=== PATIENT | male | born 1985 | race Two or more races ===

== ENCOUNTER 2017-08-16 06:53 | Emergency (ER) | payer MEDICAID ==
[~2017-08-16] VITALS: Ht 165.1 cm; Wt 72.6 kg
[2017-08-16 07:06] VITALS: BP 124/73
[2017-08-16] MEDS ORDERED: DiphenhydrAMINE 50mg/ml Inj IVP ONE (07:15)
[2017-08-16] MEDS ORDERED: Metoclopramide 10mg/2ml Inj IVP ONE (07:15)
[2017-08-16] MEDS ORDERED: Morphine Sulfate 4mg/ml Inj IVP ONE (07:15)
--- NOTE | 2017-08-16 07:32 | Emergency Room Report ---
History of Present Illness General Chief Complaint: Headache Source: Patient Present Illness HPI 32-year-old male presents ED complaining of headache. States the headache started yesterday. Noted to the back of his head, throbbing, 4 out of 10, nonradiating. Denies nuchal rigidity. Denies fevers chills. Denies nausea or vomiting. Patient states he's been having blurry vision for the last month also having weakness and dizziness. Patient's been seen by PMD. Currently waiting referral to neurology. Denies bowel or bladder incontinence. No other aggravating relieving factors. Denies any other associated symptoms Allergies: Coded Allergies: No Known Allergies (Unverified , 08/16/17) Patient History Past Medical History: none Past Surgical History: none Pertinent Family History: none Social History: Denies: smoking, alcohol use, drug use Immunizations: UTD Reviewed Nursing Documentation: PMH: Agreed; PSxH: Agreed Nursing Documentation-PMH Past Medical History: No History, Except For Hx Gastrointestinal Problems: Yes - gastritis Review of Systems All Other Systems: negative except mentioned in HPI Physical Exam Vital Signs Date Time Temp Pulse Resp B/P (MAP) Pulse Ox O2 Delivery O2 Flow Rate FiO2 08/16/17 06:54 97.8 66 18 124/73 99 Room Air 97.9 Sp02 EP Interpretation: reviewed, normal General Appearance: no apparent distress, alert, GCS 15, non-toxic Head: normocephalic, atraumatic Eyes: bilateral eye normal inspection, bilateral eye PERRL ENT: hearing grossly normal, normal pharynx, no angioedema, normal voice Neck: full range of motion, no meningismus, supple/symm/no masses Respiratory: chest non-tender, lungs clear, normal breath sounds, speaking full sentences Cardiovascular #1: regular rate, rhythm, no edema Cardiovascular #2: 2+ carotid (R), 2+ carotid (L), 2+ radial (R), 2+ radial (L) , 2+ dorsalis pedis (R), 2+ dorsalis pedis (L) Gastrointestinal: normal bowel sounds, non tender, soft, non-distended, no guarding, no rebound Rectal: deferred Genitourinary: normal inspection, no CVA tenderness Musculoskeletal: back normal, gait/station normal, normal range of motion, non- tender Neurologic: alert, oriented x3, responsive, motor strength/tone normal, sensory intact, speech normal Psychiatric: judgement/insight normal, memory normal, mood/affect normal, no suicidal/homicidal ideation Reflexes: 3+ bicep (R), 3+ bicep (L), 3+ tricep (R), 3+ tricep (L), 3+ knee (R) , 3+ knee (L) Skin: normal color, no rash, warm/dry, well hydrated Lymphatic: no adenopathy Medical Decision Making Diagnostic Impression: Primary Impression: Headache Qualified Codes: R51 - Headache ER Course Hospital Course 32 yo M presents to ED c/o occipital headache, dizziness, blurry vision x 1 month Differential diagnoses include: tension headache, migraine, dehydration, intracranial bleed Clinical course Patient placed on stretcher. After initial history and physical I ordered labs , IV fluids, Reglan, morphine and Benadryl. Labs reviewed- electrolytes okay, no leukocytosis, hemoglobin/hematocrit stable Given presentation I decided to order MRI. MRI was read as unremarkable however official report not available at time of this charting as MRI unable to transmit to PACS) I discussed findings with patient. Recommend close follow-up with PMD. Recommend neurology as outpatient i. I feel this is a highly complex case requiring extensive working including EKG/Rhythm strip, Xray/CT/US, Blood/urine lab work, repeat exams while in ED, and administration of strong opiates/narcotics for pain control, admission to hospital or close patient follow up. Diagnosis - headache stable and discharged to home with Rx Motrin. f/up with PMD/neurology. return to ED if symptoms recur/worsen. Labs Test 08/16/17 07:17 White Blood Count 4.5 K/UL (4.8-10.8) Red Blood Count 5.28 M/UL (4.70-6.10) Hemoglobin 14.4 G/DL (14.2-18.0) Hematocrit 43.5 % (42.0-52.0) Mean Corpuscular Volume 82 FL (80-99) Mean Corpuscular Hemoglobin 27.3 PG (27.0-31.0) Mean Corpuscular Hemoglobin Concent 33.2 G/DL (32.0-36.0) Red Cell Distribution Width 12.1 % (11.6-14.8) Platelet Count 213 K/UL (150-450) Mean Platelet Volume 7.7 FL (6.5-10.1) Neutrophils (%) (Auto) 50.7 % (45.0-75.0) Lymphocytes (%) (Auto) 38.8 % (20.0-45.0) Monocytes (%) (Auto) 5.2 % (1.0-10.0) Eosinophils (%) (Auto) 4.0 % (0.0-3.0) Basophils (%) (Auto) 1.4 % (0.0-2.0) Sodium Level 139 MMOL/L (136-145) Potassium Level 4.1 MMOL/L (3.5-5.1) Chloride Level 105 MMOL/L (98-107) Carbon Dioxide Level 28 MMOL/L (21-32) Anion Gap 7 mmol/L (5-15) Blood Urea Nitrogen 18 mg/dL (7-18) Creatinine 0.9 MG/DL (0.55-1.30) Estimat Glomerular Filtration Rate > 60 mL/min (>60) Glucose Level 109 MG/DL (74-106) Calcium Level 9.0 MG/DL (8.5-10.1) Total Bilirubin 1.0 MG/DL (0.2-1.0) Aspartate Amino Transf (AST/SGOT) 22 U/L (15-37) Alanine Aminotransferase (ALT/SGPT) 35 U/L (12-78) Alkaline Phosphatase 89 U/L (46-116) Total Protein 8.1 G/DL (6.4-8.2) Albumin 4.2 G/DL (3.4-5.0) Globulin 3.9 g/dL Albumin/Globulin Ratio 1.1 (1.0-2.7) CT/MRI/US Diagnostic Results CT/MRI/US Diagnostic Results : Imaging Test Ordered: MRI Brain Impression no acute process (spoke to Dr Ruiz; currently unable to transmit to PACs) Last Vital Signs Date Time Temp Pulse Resp B/P (MAP) Pulse Ox O2 Delivery O2 Flow Rate FiO2 08/16/17 07:23 97.9 08/16/17 07:06 78 18 124/73 99 Room Air Status: improved Disposition: HOME, SELF-CARE Condition: Stable Scripts Ibuprofen* (MOTRIN*) 600 Mg Tablet 600 MG ORAL Q8H PRN for For Pain, #30 TAB 0 Refills Prov: Kaiden Mao MD 08/16/17 Referrals: NOT CHOSEN IPA/,REFERRING (PCP) Kaiden Mao MD August 16, 2017 07:32
[2017-08-16 07:37] LABS: BASOPHILS % (AUTO) 1.4 % (0.0-2.0); HEMATOCRIT 43.5 % (42.0-52.0); HEMOGLOBIN 14.4 G/DL (14.2-18.0); LYMPHOCYTES % (AUTO) 38.8 % (20.0-45.0); MEAN CORPUSCULAR VOLUME 82 FL (80-99); MONOCYTES % (AUTO) 5.2 % (1.0-10.0); NEUTROPHILS % (AUTO) 50.7 % (45.0-75.0); PLATELET COUNT 213 K/UL (150-450); RED BLOOD COUNT 5.28 M/UL (4.70-6.10); RED CELL DISTRIBUTION WIDTH 12.1 % (11.6-14.8); WHITE BLOOD COUNT 4.5 K/UL (4.8-10.8)
[2017-08-16 07:54] LABS: ANION GAP 7 mmol/L (5-15); BLOOD UREA NITROGEN 18 mg/dL (7-18); CARBON DIOXIDE 28 MMOL/L (21-32); CHLORIDE 105 MMOL/L (98-107); CREATININE 0.9 MG/DL (0.55-1.30); POTASSIUM 4.1 MMOL/L (3.5-5.1); SODIUM 139 MMOL/L (136-145)
[2017-08-16 07:59] LABS: ALANINE AMINOTRANSFERASE 35 U/L (12-78); ALBUMIN 4.2 G/DL (3.4-5.0); ALBUMIN/GLOBULIN RATIO 1.1 (1.0-2.7); ALKALINE PHOSPHATASE 89 U/L (46-116); ASPARTATE AMINO TRANSFERASE 22 U/L (15-37)
[2017-08-16] MEDS ORDERED: IBUPROFEN600 MG ORAL (09:31)
[2017-08-16 09:39] VITALS: BP 124/73
--- NOTE | 2017-08-17 10:31 | Diagnostic Imaging Report ---
Indication: 32-year-old male with dizziness, weakness blurry vision headache Technique: The head was imaged in a 1.5 Alana magnet. Sequences obtained include sagittal and axial T1 FLAIR, axial T2 fast spin echo with fat saturation, axial T2 FLAIR, diffusion and ADC map. Comparison: None Findings: There is mild tonsillar herniation below the foramen magnum consistent with a Chiari I malformation. The size, contour, and configuration of the sulci, ventricles, and basal cisterns appear normal. Yuan-white differentiation is normal. There is no restricted diffusion. There is no mass effect, midline shift, edema, or hemorrhage. There are no abnormal extra-axial or intra-axial fluid collections. The corpus callosum is unremarkable. The brainstem and cerebellum are unremarkable. The sella is unremarkable. Bone marrow signal within the visualized osseous structures appears age appropriate and unremarkable otherwise. Impression: Chiari I malformation. Normal MRI of the brain otherwise.
== END 2017-08-16 09:40 | disposition home or self-care (01) ==
LOC: EMR 07:15
DX: R51 Headache (principal); G93.5 Compression of brain
CPT/HCPCS: 36415; 70551; 80053; 85025; 96374; 96375; 99284; J1200; J2270; J2765

== ENCOUNTER 2017-11-07 13:00 | Emergency (ER) | payer MEDICAID ==
[~2017-11-07] VITALS: Ht 160 cm; Wt 72.6 kg
[~2017-11-07 13:00] MED LIST: IBUPROFEN600 MG ORAL
[2017-11-07 13:14] VITALS: BP 121/79
[2017-11-07] MEDS ORDERED: Ketorolac 60mg Inj IM ONE (13:30)
[2017-11-07] MEDS ORDERED: Meclizine 25mg tab ORAL ONE (13:30)
[2017-11-07] MEDS ORDERED: Metoclopramide 10mg/2ml Inj IM ONE (13:30)
--- NOTE | 2017-11-07 13:34 | Emergency Room Report ---
History of Present Illness General Chief Complaint: Abdominal Pain Source: Patient, Medical Record Present Illness HPI 32-year-old male presents to the emergency department complaining of 10 out of 10 in severity headache with associated nausea and vomiting. Patient reports that had malformation surgery performed 2 months ago and his head. He denies photophobia or hyperacusis. Patient does report some dizziness as well states primarily when he stands up, describes the room spinning. Patient recalls that the vomiting occurred prior to his headache. He denies fevers or chills, Denies neck pain/stiffness. Reports that headache had progressive onset denies constipation or diarrhea denies black tarry stools or blood in the stools. He also denies blood in the vomit. Denies recent head trauma or fall. reports he is currently Rx'd hydrocodone and Robaxin. Allergies: Coded Allergies: No Known Allergies (Unverified , 08/16/17) Patient History Past Medical History: see triage record, other - AV Malformation Past Surgical History: other - AV Malformation surgery Pertinent Family History: none Reviewed Nursing Documentation: PMH: Agreed; PSxH: Agreed Nursing Documentation-PMH Past Medical History: No History, Except For Hx Gastrointestinal Problems: Yes - gastritis Review of Systems All Other Systems: negative except mentioned in HPI Physical Exam Vital Signs Date Time Temp Pulse Resp B/P (MAP) Pulse Ox O2 Delivery O2 Flow Rate FiO2 11/07/17 13:04 98.2 90 18 121/79 95 Room Air 98.2 Sp02 EP Interpretation: reviewed, normal General Appearance: no apparent distress, alert, GCS 15, non-toxic Head: normocephalic, atraumatic Eyes: bilateral eye normal inspection, bilateral eye PERRL ENT: hearing grossly normal, normal voice Neck: full range of motion, no meningismus, no bony tend, other - sugical scar noted no evidence of infection. Respiratory: lungs clear, normal breath sounds, speaking full sentences Cardiovascular #1: regular rate, rhythm Gastrointestinal: normal bowel sounds, non tender, soft Rectal: deferred Genitourinary: normal inspection Musculoskeletal: back normal, gait/station normal, normal range of motion, non- tender Neurologic: alert, oriented x3, responsive, motor strength/tone normal, sensory intact, cerebellar normal, normal gait, speech normal, no pronator, other - no nystagmus, grossly normal Psychiatric: judgement/insight normal Skin: normal color, no rash, warm/dry, well hydrated Medical Decision Making PA Attestation Dr. Gurrola is my supervising Physician whom patient management has been discussed with. Diagnostic Impression: Primary Impression: Dehydration, mild Additional Impressions: Head ache Qualified Codes: R51 - Headache Nausea & vomiting Qualified Codes: R11.2 - Nausea with vomiting, unspecified ER Course 32-year-old male presents to the emergency department complaining of 10 out of 10 in severity headache with associated nausea and vomiting. Patient reports that had malformation surgery performed 2 months ago and his head. He denies photophobia or hyperacusis. Patient does report some dizziness as well states primarily when he stands up, describes the room spinning. Patient recalls that the vomiting occurred prior to his headache. He denies fevers or chills, Denies neck pain/stiffness. Reports that headache had progressive onset denies constipation or diarrhea denies black tarry stools or blood in the stools. He also denies blood in the vomit. Denies recent head trauma or fall. reports he is currently Rx'd hydrocodone and Robaxin. Ddx considered but are not limited to migraine, SAH, Pseudomotor Cerebri, Mass lesion, Cluster MELISSA, Tension MELISSA, Gastritis, Dehydration-mild/ hypovolemia/ orthostatic hypo. Vital signs: are WNL, pt. is afebrile H&PE are most consistent with MELISSA with dizziness component, and hx of AV malformation this pt. ORDERS: - CT Head No Contrast: Unremarkable the known Chiari malformation identified no the comparison MRI is not as well seen. 1.4. cm mucous retention cyst in the left maxillary sinus. no ICH, mass effect or acute intracranial findings. ED INTERVENTIONS: -10mg Reglan IM -IM Toradol -1 Liter NS Bolus -Meclizine 25mg PO Pt reports Dizziness has resolved after ED interventions. DISCHARGE: At this time pt. is stable for d/c to home. Will provide printed patient care instructions, and any necessary prescriptions. Care plan and follow up instructions have been discussed with the patient prior to discharge. CT/MRI/US Diagnostic Results CT/MRI/US Diagnostic Results : Imaging Test Ordered: CT Head No Contrast Impression Unremarkable the known Chiari malformation identified no the comparison MRI is not as well seen. 1.4. cm mucous retention cyst in the left maxillary sinus. no ICH, mass effect or acute intracranial findings. - Per official radiology report- Please see report for specific details. Last Vital Signs Date Time Temp Pulse Resp B/P (MAP) Pulse Ox O2 Delivery O2 Flow Rate FiO2 11/07/17 13:14 98.2 18 121/79 95 Room Air 98.2 11/07/17 13:04 90 Status: improved Disposition: HOME, SELF-CARE Condition: Serious Scripts Ondansetron Odt* (ZOFRAN ODT*) 4 Mg Tab.rapdis 4 MG BC EVERY 8 HOURS, #10 TAB 0 Refills Prov: Lisseth Elaine 11/07/17 Patient Instructions: Dehydration, Adult, [id number], Nausea and Vomiting, Adult, [id number] Additional Instructions: Take medications as directed. Follow up with a Primary Care Provider and Neurologist in 3-5 days, even if your symptoms have resolved. --Please review list of primary care clinics, if you do not already have a primary care provider Return sooner to ED if new symptoms occur, or current symptoms become worse. - Please note that this Emergency Department Report was dictated using [employer] broker technology software, occasionally this can lead to erroneous entry secondary to interpretation by the dictation equipment. Lisseth Elaine Nov 07, 2017 13:34
[2017-11-07] MEDS ORDERED: Metoclopramide 10mg/2ml Inj IVP ONE (13:45)
[2017-11-07] MEDS ORDERED: Ketorolac 30mg Inj IV ONE (13:45)
[2017-11-07] MEDS ORDERED: ONDANSETRON ODT4 MG BC (15:08)
[2017-11-07 15:20] VITALS: BP 118/75
--- NOTE | 2017-11-08 08:42 | Diagnostic Imaging Report ---
Indications: Head pain Technique: Spiral acquisitions obtained through the brain. Angled axial and coronal 5 x 5 mm slices were reconstructed. Total dose length product 1410.35 mGycm. CTDI vol(s) 70.38 mGy. Dose reduction achieved using automated exposure control Comparison: Brain MRI dated 08/08/2017 Findings: No acute intracranial hemorrhage or edema, mass effect, nor midline shift. Normal size ventricles and extra-axial CSF spaces. Normal ward-white differentiation. Intact calvarium. There is a mucous retention cyst in the left maxillary sinus. Previously reported Chiari I malformation is less evident on CT Impression: Negative for acute intracranial bleed or mass effect Incidental findings as noted This agrees with the preliminary interpretation provided overnight by [facility] teleradiology service. The CT scanner at [facility] is accredited by the [employer] and the scans are performed using protocols designed to limit radiation exposure to as low as reasonably achievable to attain images of sufficient resolution adequate for diagnostic evaluation.
== END 2017-11-07 15:45 | disposition home or self-care (01) ==
LOC: EMR 13:33
DX: R51 Headache (principal); E86.0 Dehydration; K29.70 Gastritis, unspecified, without bleeding; R42 Dizziness and giddiness; Z98.890 Other specified postprocedural states
CPT/HCPCS: 70450; 96361; 96372; 96374; 96375; 99285; J2765; 99284

== ENCOUNTER 2017-12-27 15:03 | Emergency (ER) | payer MEDICAID ==
[~2017-12-27] VITALS: Ht 162.6 cm; Wt 63.5 kg
[~2017-12-27 15:03] MED LIST changes: +ONDANSETRON ODT4 MG BC
--- NOTE | 2017-12-27 15:44 | Emergency Room Report ---
History of Present Illness General Chief Complaint: General Complaint Source: Patient, Medical Record Present Illness HPI Yossi is a very pleasant 32-year-old male who underwent surgery due to chiari malformation. The surgery occurred 4 minutes ago at [facility]. Prior to the surgery he had headache blurry vision and left arm weakness. After the surgery he has had intermittent blurry vision. He has had swelling near the incision site just to the left. His primary care physician was concerned that the swelling was caused by another process. Neurosurgeon gave the patient reassurance and recommended anti-inflammatories. Patient will begin physical therapy which should help the swelling. The swelling is intermittent. It lasts several days and then resolves spontaneously. Allergies: Coded Allergies: No Known Allergies (Unverified , 08/16/17) Patient History Past Medical History: see triage record Past Surgical History: other - per HPI Social History: Denies: smoking Reviewed Nursing Documentation: PMH: Agreed; PSxH: Agreed Nursing Documentation-PM Past Medical History: No History, Except For Hx Gastrointestinal Problems: Yes - gastritis Review of Systems Constitutional: Denies: sweats, fever Cardiovascular: Denies: chest pain All Other Systems: negative except mentioned in HPI Physical Exam Vital Signs Date Time Temp Pulse Resp B/P (MAP) Pulse Ox O2 Delivery O2 Flow Rate FiO2 12/27/17 15:10 98.3 77 18 119/72 97 Room Air 98.2 Sp02 EP Interpretation: reviewed, normal General Appearance: no apparent distress, alert, GCS 15, non-toxic Head: normocephalic, atraumatic Eyes: bilateral eye normal inspection ENT: hearing grossly normal, normal pharynx, no angioedema, normal voice Neck: full range of motion, supple, no meningismus, no bony tend, supple/symm/ no masses, other - midline well healed surgical scar without infection, FROM, no swelling no tenderness no redness Respiratory: chest non-tender, lungs clear, normal breath sounds, speaking full sentences Cardiovascular #1: regular rate, rhythm, no edema, no gallop, no JVD, no murmur , no rub Gastrointestinal: normal bowel sounds, non tender, soft, non-distended, no guarding, no rebound Genitourinary: normal inspection Musculoskeletal: back normal, gait/station normal, normal range of motion, non- tender Neurologic: alert, oriented x3, responsive, motor strength/tone normal, sensory intact, speech normal Psychiatric: judgement/insight normal, memory normal, mood/affect normal, no suicidal/homicidal ideation Skin: normal color, no rash, warm/dry, well hydrated Medical Decision Making Diagnostic Impression: Primary Impression: History of recent neurosurgical procedure Additional Impressions: Chiari malformation Seroma after procedure ER Course Yossi has hx of intermittent swelling near surgical site for past 4 months. Has been closely followed by neurosurgeon and PCP. No indication of meningitis. Patient has seroma as a result of procedure according to CT head and CT spine. REcommended continued use of NSAIDS dc'd to follow up with his personal neurologist or neurosurgeon. Patient given verbal and written dc'd instructions. He was given copies of CT reports. Last Vital Signs Date Time Temp Pulse Resp B/P (MAP) Pulse Ox O2 Delivery O2 Flow Rate FiO2 12/27/17 15:10 98.3 77 18 119/72 97 Room Air 98.2 Disposition: HOME, SELF-CARE Condition: Stable Alexandra Leyva MD Dec 27, 2017 15:44
--- NOTE | 2017-12-27 16:22 | Diagnostic Imaging Report ---
Indication: Headache Technique: Contiguous 5 mm thick transaxial imaging of the head obtained in a Siemens Sensation [address] scanner. Soft tissue and bone windows generated. Automatic Exposure Control was utilized. Total Dose length Product (DLP): 1856.[address] Dose Index Volume (CTDIvol): 70.38,16.24 mGy Comparison: none Findings: The size and configuration of the cortical sulci, basal cisterns, and ventricles are within normal limits for age. There is no mass effect, midline shift, or edema identified. There is no evidence of acute hemorrhage or abnormal intra-axial or extra-axial fluid collections. The bones and soft tissues are unremarkable. Impression: No mass effect, edema or acute bleed. The CT scanner at [facility] is accredited by the [employer] and the scans are performed using dose optimization techniques as appropriate to a performed exam including Automatic Exposure control.
--- NOTE | 2017-12-27 16:33 | Diagnostic Imaging Report ---
Indication: Neck pain. Headache. Status post surgery for a Chiari malformation Technique: Continuous helical imaging of the cervical spine was obtained transaxially from the skull base to the upper thoracic spine. 2-D coronal and sagittal reformatted images were obtained. Automatic Exposure Control was utilized. Total Dose length Product (DLP): 1856.[address] Dose Index Volume (CTDIvol): 70.38,16.24 mGy Comparison: MRI brain 08/16/2017 Findings: The patient has had recent widening of the foramen magnum, resection of part of the lamina and spinous process of C1. There is approximately 2.7 x 3.6 x 3.3 cm fluid collection (AP, craniocaudal, transverse dimensions respectively) within the surgical bed, posterior C1 level, posterior to the thecal sac and spinal canal. This is consistent with a postoperative fluid collection and may be a seroma or pseudomeningocele (CSF collection). There is no mass effect or compression of the spinal canal. The remainder of the exam is normal. Osseous structures demonstrate normal alignment. There is distortion of the posterior paraspinous musculature such as the nuchal ligament and the subcutaneous fat due to the surgery. IMPRESSION: Postoperative fluid collection measuring 2.7 x 3.6 x 2.3 cm at the C1 laminectomy site likely seroma or pseudomeningocele. No evidence of any associated compression of the thecal sac or cord. Partial suboccipital craniectomy also noted. The CT scanner at [facility] is accredited by the [employer] and the scans are performed using dose optimization techniques as appropriate to a performed exam including Automatic Exposure control.
[2017-12-27 16:46] VITALS: BP 119/72
[2017-12-27 18:10] VITALS: BP 123/75
== END 2017-12-27 18:15 | disposition home or self-care (01) ==
LOC: EMR 16:09
DX: L76.34 Postprocedural seroma of skin and subcutaneous tissue following other procedure (principal); Y83.8 Other surgical procedures as the cause of abnormal reaction of the patient, or of later complication, without mention of misadventure at the time of the procedure; Y92.9 Unspecified place or not applicable; Z86.69 Personal history of other diseases of the nervous system and sense organs
CPT/HCPCS: 70450; 72125; 99284

== ENCOUNTER 2018-01-20 18:35 | Emergency (ER) | payer MEDICAID ==
[~2018-01-20] VITALS: Ht 167.6 cm; Wt 78.0 kg
[2018-01-20 18:45] VITALS: BP 132/85
[2018-01-20] MEDS ORDERED: MAGNESIUM OXID400 M1 ORAL (18:54)
[2018-01-20] MEDS ORDERED: TOPIRAMATE100 MG ORAL (18:54)
--- NOTE | 2018-01-20 19:20 | Emergency Room Report ---
History of Present Illness General Chief Complaint: Headache Source: Patient Present Illness HPI 32-year-old male patient presents ER complaining of headache and blurred vision for the past 2 days. Patient reports a history of Chiari malformation, states he had surgery 5 months ago to correct it. Reports she was then diagnosed with hydrocephalus one month ago. Was told reports the ER for headache symptoms. States that he was told to take Tylenol for headache symptoms. States she has not taken Tylenol for 2 days. Reports a shunt was not placed. Denies fever, chest pain, shortness of breath, vomiting. Denies acute injury or trauma. Denies curtain coming down a field of vision. reports frontal headache. Denies cough. Denies loss of consciousness. Denies eye pain. Denies vertigo. Allergies: Coded Allergies: No Known Allergies (Unverified , 08/16/17) Patient History Past Medical History: see triage record Reviewed Nursing Documentation: PMH: Agreed; PSxH: Agreed Nursing Documentation-PMH Hx Gastrointestinal Problems: Yes - gastritis Review of Systems All Other Systems: negative except mentioned in HPI Physical Exam Vital Signs Date Time Temp Pulse Resp B/P (MAP) Pulse Ox O2 Delivery O2 Flow Rate FiO2 01/20/18 18:45 98.1 68 20 132/85 98 Room Air Sp02 EP Interpretation: reviewed, normal General Appearance: well appearing, no apparent distress, alert, GCS 15, non- toxic Head: normocephalic, atraumatic Eyes: bilateral eye normal inspection, bilateral eye PERRL, bilateral eye EOMI ENT: hearing grossly normal, normal pharynx, no angioedema, normal voice, uvula midline, moist mucus membranes Neck: full range of motion Respiratory: lungs clear, normal breath sounds, no rhonchi, no respiratory distress, no accessory muscle use, no wheezing, speaking full sentences Cardiovascular #1: regular rate, rhythm, no edema Genitourinary: no CVA tenderness Musculoskeletal: back normal, digits/nails normal, gait/station normal, normal range of motion, non-tender Neurologic: alert, oriented x3, responsive, backup administrator III-XII nml as tested, motor strength/tone normal, sensory intact, cerebellar normal, normal gait, speech normal, other - negative Kernig, negative brudzinski Psychiatric: mood/affect normal Skin: no rash Medical Decision Making PA Attestation Dr. Chua is my supervising Physician whom patient management has been discussed with. Diagnostic Impression: Primary Impression: Headache ER Course Pt presents to ED c/o headache and blurred vision. DDX considered but are not limited to migraine, cluster MELISSA, tension MELISSA, meningitis, ICH, meningitis, glaucoma, retinal detachment, intracranial mass/ lesion. No focal neuro deficits, cranial nerves intact as tested. Negative kernig, negative brudzinski, afebrile, nontoxic appearing, low suspicion for meningitis. No eye pain, no vision loss, no conjunctival injection, low suspicion for glaucoma. VITAL SIGNS are WNL, patient is afebrile ER COURSE Provided with pain medication. Visual acuity shows vision 20/13 for both eyes. See nurses note. CT head normal Discuss results with patient. Patient reports pain improved. Patient is AOx3, neurologically intact, nontoxic appearing, and ambulatory. follow with PCP and neurology. ER precautions given. Patient able to ambulate independently without difficulty, smiling and laughing. DISCHARGE: -Rx provided Tylenol At this time pt is stable for d/c to home. Patient is resting comfortably, in no acute distress, nontoxic appearing, talking and smiling. Will provide with patient care instructions and any necessary prescriptions. Patient to take medication as instructed. Care plan and follow-up instructions provided. Patient questions asked and answered. Patient instructed to follow-up with primary care provider in the next 3 days and discuss further referral with PCP to neurologist. ER precautions given. Patient instructed to return to ER immediately for any new or worsening of symptoms including but not limited to fever, neck stiffness , vision changes, and neurological symptoms. - Please note that this Emergency Department Report was dictated using [employer] license reviewing officer technology software, occasionally this can lead to erroneous entry secondary to interpretation by the dictation equipment. Last Vital Signs Date Time Temp Pulse Resp B/P (MAP) Pulse Ox O2 Delivery O2 Flow Rate FiO2 01/20/18 18:45 98.1 68 20 132/85 98 Room Air Status: improved Disposition: HOME, SELF-CARE Condition: Stable Scripts Acetaminophen* (TYLENOL EXTRA STRENGTH*) 500 Mg Tablet 500 MG ORAL Q8H PRN for Prn Headache/Temp > 101, #30 TAB 0 Refills Prov: Ang Kim 01/20/18 Referrals: NON PHYSICIAN (PCP) Patient Instructions: General Headache Without Cause Additional Instructions: Followup with primary care provider in 1-3 days. Take medications as directed. Patient questions asked and answered. ER precautions given, patient instructed to return to ER immediately for any new or worsening of symptoms. Ang Kim Jan 20, 2018 19:20
[2018-01-20] MEDS ORDERED: TYLENOL EXTRA500 MG ORAL (20:35)
[2018-01-20 20:41] VITALS: BP 140/82
[2018-01-20 20:42] VITALS: BP 132/85
--- NOTE | 2018-01-21 10:03 | Diagnostic Imaging Report ---
Indication: Headache Technique: Contiguous 5 mm thick transaxial imaging of the head obtained in a Siemens Sensation [address] scanner. Soft tissue and bone windows generated. Automatic Exposure Control was utilized. Total Dose length Product (DLP): 1397.[address] Dose Index Volume (CTDIvol): 70.38 mGy Comparison: 12/27/2017 Findings: The size and configuration of the cortical sulci, basal cisterns, and ventricles are within normal limits for age. There is no mass effect, midline shift, or edema identified. There is no evidence of acute hemorrhage or abnormal intra-axial or extra-axial fluid collections. The bones and soft tissues are unremarkable. Impression: No mass effect, edema or acute bleed. The CT scanner at [facility] is accredited by the [employer] [place] [employer] and the scans are performed using dose optimization techniques as appropriate to a performed exam including Automatic Exposure control.
== END 2018-01-20 20:53 | disposition home or self-care (01) ==
LOC: EMR 19:06
DX: R51 Headache (principal); H53.8 Other visual disturbances
CPT/HCPCS: 70450; 99284

== ENCOUNTER 2019-10-21 08:47 | Emergency (ER) | payer MEDICAID ==
[~2019-10-21] VITALS: Ht 165.1 cm; Wt 72.6 kg
[~2019-10-21 08:47] MED LIST changes: +MAGNESIUM OXID400 M1 ORAL; +TOPIRAMATE100 MG ORAL; +TYLENOL EXTRA500 MG ORAL
[2019-10-21 09:01] VITALS: BP 130/79
--- NOTE | 2019-10-21 09:07 | NUR ---
ED Nurse Note: Patient walked in to ER c/o heart burn sensations x 12 days. Patient stated has abd discomphort and heart burn only when he eats something. Patient wazlked in with steady gait, AAO x4, VSS at this time.
--- NOTE | 2019-10-21 09:09 | NUR ---
ED Nurse Note: ER MD at bed side
[2019-10-21] MEDS ORDERED: Lidocaine 2% Visc 15ml soln ORAL ONE (09:15)
[2019-10-21] MEDS ORDERED: Mylanta II UD 30ml ORAL ONE (09:15)
[2019-10-21] MEDS ORDERED: Dicyclomine HCl 10mg/5ml oral soln ORAL ONE (09:15)
--- NOTE | 2019-10-21 09:31 | NUR ---
ED Nurse Note: IV line established on right AC 20 ga, blood and urine specimen sent to lab
[2019-10-21 09:55] LABS: ANION GAP 6 mmol/L (5-15); BLOOD UREA NITROGEN 12 mg/dL (7-18); CALCIUM 9.4 MG/DL (8.5-10.1); CARBON DIOXIDE 31 MMOL/L (21-32); CHLORIDE 102 MMOL/L (98-107); POTASSIUM 4.6 MMOL/L (3.5-5.1); SODIUM 139 MMOL/L (136-145)
[2019-10-21 10:00] LABS: ALANINE AMINOTRANSFERASE 40 U/L (12-78); ALBUMIN 4.5 G/DL (3.4-5.0); ALBUMIN/GLOBULIN RATIO 1.2 (1.0-2.7); ALKALINE PHOSPHATASE 99 U/L (46-116); ASPARTATE AMINO TRANSFERASE 26 U/L (15-37); BILIRUBIN,TOTAL 0.9 MG/DL (0.2-1.0)
[2019-10-21 10:04] LABS: APPEARANCE,URINE CLEAR; BILIRUBIN, URINE NEGATIVE (NEGATIVE); GLUCOSE, URINE (UA) NEGATIVE (NEGATIVE); KETONES,URINE NEGATIVE (NEGATIVE); LEUKOCYTE ESTERASE ,URINE NEGATIVE (NEGATIVE); NITRITE,URINE NEGATIVE (NEGATIVE); PH,URINE 5 (4.5-8.0); PROTEIN,URINE NEGATIVE (NEGATIVE); UROBILINOGEN,URINE NORMAL MG/DL (0.0-1.0)
[2019-10-21 10:08] LABS: COLOR,URINE YELLOW
[2019-10-21 10:14] LABS: BASOPHILS % (AUTO) 1.1 % (0.0-2.0); EOSINOPHILS % (AUTO) 3.5 % (0.0-3.0); HEMATOCRIT 48.7 % (42.0-52.0); HEMOGLOBIN 15.8 G/DL (14.2-18.0); LYMPHOCYTES % (AUTO) 33.1 % (20.0-45.0); MEAN CORPUSCULAR VOLUME 84 FL (80-99); MONOCYTES % (AUTO) 8.4 % (1.0-10.0); NEUTROPHILS % (AUTO) 53.9 % (45.0-75.0); PLATELET COUNT 266 K/UL (150-450); RED CELL DISTRIBUTION WIDTH 12.3 % (11.6-14.8); WHITE BLOOD COUNT 5.5 K/UL (4.8-10.8)
[2019-10-21] MEDS ORDERED: ONDANSETRON ODT4 MG BC (10:41)
[2019-10-21] MEDS ORDERED: FAMOTIDINE20 MG ORAL (10:41)
[2019-10-21] MEDS ORDERED: DICYCLOMINE HCL10 MG ORAL (10:41)
--- NOTE | 2019-10-21 10:51 | NUR ---
ER DISCHARGE NOTE: Patient is cleared to be discharged per ERMD, pt is aox4, on room air, with stable vital signs. pt was given dc and prescription instructions, pt was able to verbalize understanding, pt id band and iv site removed without complications. pt is able to ambulate with steady gait. pt took all belongings.
--- NOTE | 2019-10-21 12:11 | Emergency Room Report ---
History of Present Illness General Chief Complaint: Abdominal Pain Source: Patient, Medical Record Present Illness HPI 34-year-old male presents to ED complaining of abdominal pain with diarrhea. Pain on and off for the last 12 days. Pain is burning, epigastric, nonradiating. Also notes diarrhea. Notes nausea denies vomiting. Denies fevers or chills. Denies recent travel. Denies recent antibiotic use. Denies runny nose cough or congestion. No other aggravating relieving factors. Denies any other associated symptoms Allergies: Coded Allergies: No Known Allergies (Unverified , 08/16/17) COVID-19 Screening Contact w/high risk pt: No Experienced COVID-19 symptoms?: No COVID-19 Testing performed TORCH HEATER: No Patient History Past Medical History: GERD Past Surgical History: none Pertinent Family History: none Social History: Denies: smoking, alcohol use, drug use Immunizations: UTD Reviewed Nursing Documentation: PMH: Agreed; PSxH: Agreed Nursing Documentation-PMH Past Medical History: No History, Except For Hx Gastrointestinal Problems: Yes - gastritis Review of Systems All Other Systems: negative except mentioned in HPI Physical Exam Vital Signs Date Time Temp Pulse Resp B/P (MAP) Pulse Ox O2 Delivery O2 Flow Rate FiO2 10/21/19 08:55 97.9 80 18 130/79 (96) 98 Room Air Sp02 EP Interpretation: reviewed, normal General Appearance: no apparent distress, alert, GCS 15, non-toxic Head: normocephalic, atraumatic Eyes: bilateral eye normal inspection, bilateral eye PERRL ENT: hearing grossly normal, normal pharynx, no angioedema, normal voice Neck: full range of motion, supple/symm/no masses Respiratory: chest non-tender, lungs clear, normal breath sounds, speaking full sentences Cardiovascular #1: regular rate, rhythm, no edema Cardiovascular #2: 2+ carotid (R), 2+ carotid (L), 2+ radial (R), 2+ radial (L) , 2+ dorsalis pedis (R), 2+ dorsalis pedis (L) Gastrointestinal: normal bowel sounds, soft, non-distended, no guarding, no rebound, tenderness Rectal: deferred Genitourinary: normal inspection, no CVA tenderness Musculoskeletal: back normal, normal range of motion, gait/station normal, non- tender Neurologic: alert, motor strength/tone normal, oriented x3, sensory intact, responsive, speech normal Psychiatric: judgement/insight normal, memory normal, mood/affect normal, no suicidal/homicidal ideation Reflexes: 3+ bicep (R), 3+ bicep (L), 3+ tricep (R), 3+ tricep (L), 3+ knee (R) , 3+ knee (L) Skin: no rash Lymphatic: no adenopathy Medical Decision Making Diagnostic Impression: Primary Impression: Gastroenteritis ER Course Hospital Course 34-year-old M presents to ED with cramping abdominal pain with diarrhea differential diagnosis: gastritis, SBO, cholecystits, gastroenteritis Clinical course Patient placed on stretcher. On cocktail server. After initial history and physical I ordered labs, IV fluids,pepcid and GI cocktail Labs - no leukocytosis, electrolytes ok, LFTs normal Upon reassessment, patient states pain has improved. findings consistent with gastroenteritis discussed findings with patient. Safe for discharge and close outpatient follow-up. States he has a PMD I feel this is a highly complex case requiring extensive working including EKG/ Rhythm strip, Xray/CT/US, Blood/urine lab work, repeat exams while in ED, and administration of strong opiates/narcotics for pain control, admission to hospital or close patient follow up. Diagnosis - gastroenteritis Stable and discharged to home with prescriptions for pepcid, bentyl, zofran. Followup with PMD. Return to ED if symptoms recur or worsen Laboratory Tests Test 10/21/19 09:21 10/21/19 09:26 Urine Color Yellow Urine Appearance Clear Urine pH 5 (4.5-8.0) Urine Specific Declo 1.020 (1.005-1.035) Urine Protein Negative (NEGATIVE) Urine Glucose (UA) Negative (NEGATIVE) Urine Ketones Negative (NEGATIVE) Urine Blood 1+ (NEGATIVE) H Urine Nitrite Negative (NEGATIVE) Urine Bilirubin Negative (NEGATIVE) Urine Urobilinogen Normal MG/DL (0.0-1.0) Urine Leukocyte Esterase Negative (NEGATIVE) Urine RBC 0-2 /HPF (0 - 0) H Urine WBC 0 /HPF (0 - 0) Urine Squamous Epithelial Cells None /LPF (NONE/OCC) Urine Bacteria None /HPF (NONE) White Blood Count 5.5 K/UL (4.8-10.8) Red Blood Count 5.80 M/UL (4.70-6.10) Hemoglobin 15.8 G/DL (14.2-18.0) Hematocrit 48.7 % (42.0-52.0) Mean Corpuscular Volume 84 FL (80-99) Mean Corpuscular Hemoglobin 27.2 PG (27.0-31.0) Mean Corpuscular Hemoglobin Concent 32.4 G/DL (32.0-36.0) Red Cell Distribution Width 12.3 % (11.6-14.8) Platelet Count 266 K/UL (150-450) Mean Platelet Volume 7.5 FL (6.5-10.1) Neutrophils (%) (Auto) 53.9 % (45.0-75.0) Lymphocytes (%) (Auto) 33.1 % (20.0-45.0) Monocytes (%) (Auto) 8.4 % (1.0-10.0) Eosinophils (%) (Auto) 3.5 % (0.0-3.0) H Basophils (%) (Auto) 1.1 % (0.0-2.0) Sodium Level 139 MMOL/L (136-145) Potassium Level 4.6 MMOL/L (3.5-5.1) Chloride Level 102 MMOL/L (98-107) Carbon Dioxide Level 31 MMOL/L (21-32) Anion Gap 6 mmol/L (5-15) Blood Urea Nitrogen 12 mg/dL (7-18) Creatinine 1.0 MG/DL (0.55-1.30) Estimat Glomerular Filtration Rate > 60 mL/min (>60) Glucose Level 136 MG/DL (74-106) H Calcium Level 9.4 MG/DL (8.5-10.1) Total Bilirubin 0.9 MG/DL (0.2-1.0) Aspartate Amino Transf (AST/SGOT) 26 U/L (15-37) Alanine Aminotransferase (ALT/SGPT) 40 U/L (12-78) Alkaline Phosphatase 99 U/L (46-116) Total Protein 8.2 G/DL (6.4-8.2) Albumin 4.5 G/DL (3.4-5.0) Globulin 3.7 g/dL Albumin/Globulin Ratio 1.2 (1.0-2.7) Lipase 208 U/L (73-393) Last Vital Signs Date Time Temp Pulse Resp B/P (MAP) Pulse Ox O2 Delivery O2 Flow Rate FiO2 10/21/19 10:51 97.9 18 130/79 98 Room Air 10/21/19 09:01 80 Status: improved Disposition: HOME, SELF-CARE Condition: Stable Scripts Dicyclomine Hcl* (DICYCLOMINE HCL*) 10 Mg Capsule 10 MG ORAL QID, #20 CAP Prov: Kaiden Mao MD 10/21/19 Ondansetron Odt* (ZOFRAN ODT*) 4 Mg Tab.rapdis 4 MG BC EVERY 6 HOURS PRN for Nausea & Vomiting, #20 TAB 0 Refills Prov: Kaiden Mao MD 10/21/19 Famotidine* (Pepcid 20mg tablet*) 20 Mg Tablet 20 MG ORAL DAILY, #30 TAB 0 Refills Prov: Kaiden Mao MD 10/21/19 Referrals: NON PHYSICIAN (PCP) Patient Instructions: Viral Gastroenteritis, Adult, [id number] Kaiden Mao MD Oct 21, 2019 12:11
== END 2019-10-21 10:49 | disposition home or self-care (01) ==
LOC: EMR 09:20
DX: K52.9 Noninfective gastroenteritis and colitis, unspecified (principal); K21.9 Gastro-esophageal reflux disease without esophagitis
CPT/HCPCS: 36415; 80053; 81003; 83690; 85025; 96361; 96374; J7030; S0028; Z7502; 99284